=== PATIENT | female | born 1995 | race Caucasian/White ===

== ENCOUNTER → 2025-06-20 | Outpatient (CLI) | payer SELFPAY ==
[2025-06-20 13:19] LABS: Source, Urine Clean Catch
[2025-06-20 16:19] LABS: Red Blood Cells, Urine 0-2 /hpf (0-2); White Blood Cells, Urine 0-2 /hpf (0-5)
== END | disposition home or self-care (01) ==
LOC: LAB 13:00 → LAB SHORT 13:00
PROVIDERS: Naturopath
DX: Z01.419 Encounter for gynecological examination (general) (routine) without abnormal findings (principal); Z11.3 Encounter for screening for infections with a predominantly sexual mode of transmission; Z13.1 Encounter for screening for diabetes mellitus; Z13.220 Encounter for screening for lipoid disorders; E61.1 Iron deficiency; G47.00 Insomnia, unspecified; R10.9 Unspecified abdominal pain
CPT/HCPCS: 81015; 87086